=== PATIENT | male | born 2000 | race Caucasian/White ===

== ENCOUNTER 2024-03-08 08:28 | Outpatient (CLI) | payer BC, SELFPAY ==
--- NOTE | 2024-03-08 08:41 | XR_ITS ---
FINAL REPORT CLINICAL HISTORY: Foot Pain COMPARISON: None FINDINGS: RIGHT FOOT: Three views of the right foot were obtained. A pes planus deformity is noted. There is no acute fracture or dislocation. The joint spaces are intact. There is no soft tissue abnormality. IMPRESSION: Pes planus deformity without acute bony abnormality. Reviewed, Interpreted and Dictated by Wisam Villalobos III, MD Transcribed by Nadia Cochran Authenticated and . [facility]
--- NOTE | 2024-03-08 08:41 | XR_ITS ---
FINAL REPORT CLINICAL HISTORY: Foot Pain COMPARISON: None FINDINGS: LEFT FOOT: Three views of the left foot were obtained. A pes planus deformity is noted. There is no acute fracture or dislocation. The joint spaces are intact. There is no soft tissue abnormality. IMPRESSION: Pes planus deformity without acute bony abnormality. Reviewed, Interpreted and Dictated by Wisam Villalobos III, MD Transcribed by Nadia Cochran Authenticated and [facility]
== END 2024-03-08 23:59 | disposition home or self-care (01) ==
PROVIDERS: PCP Nurse Practitioner Family; Visit Provider Nurse Practitioner
DX: M79.671 Pain in right foot (principal); M79.672 Pain in left foot
CPT/HCPCS: 73630

== ENCOUNTER 2025-03-20 13:06 | Outpatient (CLI) | payer BC, SELFPAY ==
--- NOTE | 2025-03-20 13:09 | XR_ITS ---
FINAL REPORT CLINICAL HISTORY: R knee pain..no trauma FINDINGS: RIGHT KNEE 3 views of the right knee were obtained. There is no acute fracture or dislocation. Visualized joint spaces are normally aligned. Soft tissues are unremarkable. IMPRESSION: No acute bony abnormality. Reviewed, Interpreted and Dictated by Ernestina Chambers MD Transcribed by Desiree Singletary Authenticated and [facility]
== END 2025-03-20 23:59 ==
LOC: RAD 13:06
PROVIDERS: PCP Nurse Practitioner Family; Visit Provider Student in an Organized Health Care Education/Training Program
DX: M25.561 Pain in right knee (principal); N39.0 Urinary tract infection, site not specified
CPT/HCPCS: 73562; 87086

== ENCOUNTER 2025-03-28 13:30 | Outpatient (CLI) | payer BC, SELFPAY ==
--- NOTE | 2025-03-28 13:31 | XR_ITS ---
FINAL REPORT CLINICAL HISTORY: right knee pain COMPARISON: 03/20/2025 FINDINGS: RIGHT KNEE: 4 views of the right knee obtained including standing views. There is no acute fracture or dislocation. The joint spaces are intact.. There is no soft tissue abnormality. IMPRESSION: No acute fracture Reviewed, Interpreted and Dictated by Lexi Dewey MD Transcribed by Desiree Singletary Authenticated and [facility]
== END 2025-03-28 23:59 | disposition home or self-care (01) ==
LOC: RAD 13:31
PROVIDERS: PCP Nurse Practitioner Family; Visit Provider Physician Assistant
DX: M25.561 Pain in right knee (principal)
CPT/HCPCS: 73564